=== PATIENT | female | born 1980 | race Caucasian/White ===

== ENCOUNTER 2021-12-09 12:39 | Inpatient (IN) ==
[2021-12-09 14:41] LABS: Basophils % 0.5 % (0.0-0.8); Eosinophils # 0.1 10*3/uL (0.0-0.87); Eosinophils % 2.6 % (0.00-10.9); Hematocrit 26.8 VOL% (35.7-47.0); Hemoglobin 8.6 GM/DL (12.0-16.0); Immature Granulocytes % 0.5 %; Immature Granulocytes Absolute 0.02 #; Lymphocytes % 26.3 % (21.3-54.2); Mean Corpuscular HGB Conc 32.1 GM/DL (32-36); Mean Platelet Volume 10.9 FL (9.6-12.0); Monocytes % 4.6 % (1.7-12.7); Neutrophils % 65.5 % (38.7-73.9); Platelet Count 95 T/CUMM (130-400); Red Blood Count 3.19 MC/CUMM (3.8-5.5); Red Cell Distribution Width 15.4 % (9.3-17.3); White Blood Count 3.9 T/CUMM (4-12)
[2021-12-09 14:49] LABS: Bilirubin,Urine Negative (Negative); Blood, Urine Moderate mg/dL (Negative); Glucose,Urine (UA) Negative (Negative); Ketones,Urine Negative (Negative); Mucus,Urine Occasional /LPF (Occasional); Nitrite,Urine Negative (Negative); Protein,Urine Negative; RBC,Urine 4 /HPF (0-4); Squamous Epithelial Cell,Urine Occasional /HPF (0-10); Urine Appearance Slightly Hazy (Clear); Urine Color Yellow (Yellow); Urine Specific Gravity 1.024 (1.001-1.035); Urine Urobilinogen < 2.0 EU/DL (<2.0)
[2021-12-09 14:59] LABS: Albumin 2.7 G/DL (3.4-5.0); Bilirubin,Total 0.7 MG/DL (0.20-1.00); Calcium 8.3 MG/DL (8.5-10.1); Potassium 3.6 MMOL/L (3.5-5.1); Total Protein 7.8 G/DL (6.4-8.2)
[2021-12-09 15:07] LABS: Eosinophils 1 % (0-10); Lymphocytes 16 % (20-55); Segmented Neutrophils 82 % (50-85); Total Cells Counted 100
[2021-12-09 15:08] LABS: Anisocytosis Slight; Microcytosis Slight; Platelet Estimate Decreased; Polychromasia Few
[2021-12-09] MEDS ORDERED: SODIUM CHLORIDE 0.9% 2,000 ML IV STA (15:39)
[2021-12-09] MEDS ORDERED: cefTRIAXone 1,000 MG in SODIUM CHLORIDE 0.9% 100 ML IV STA (15:40)
[2021-12-09 15:53] LABS: INR 1.2; PT Patient Result 12.7 SECS (10.5-12.0)
[2021-12-09] MEDS ORDERED: PANTOPRAZOLE INJ 80 MG in SODIUM CHLORIDE 0.9% 100 ML IV ONE (18:49)
[2021-12-09] MEDS ORDERED: ALBUTEROL/IPRATROPIUM 3 ML NEB RESP TX PRN (18:50)
[2021-12-09] MEDS ORDERED: NICOTINE 21 MG/24 HR PATCH TRANSDERM PRN (18:50)
[2021-12-09] MEDS ORDERED: ONDANSETRON 4 MG/2 ML VIAL IV PRN (18:50)
[2021-12-09] MEDS ORDERED: guaiFENesin/DM ER 600-30 MG TABLET PO PRN (18:50)
[2021-12-09] MEDS ORDERED: DOCUSATE SODIUM 100 MG CAPSULE PO PRN (18:50)
[2021-12-09] MEDS ORDERED: hydrALAZINE 20 MG/1 ML VIAL IV PRN (18:50)
[2021-12-09] MEDS ORDERED: ACETAMINOPHEN 325 MG TABLET PO PRN (18:50)
[2021-12-09] MEDS ORDERED: PROMETHAZINE 25 MG/1 ML VIAL IM PRN (18:50)
[2021-12-09] MEDS ORDERED: diphenhydrAMINE CAP 25 MG CAPSULE PO PRN (18:50)
[2021-12-09] MEDS ORDERED: DEXTROSE 10% 250 ML BAG IV PRN (18:50)
[2021-12-09] MEDS ORDERED: ZALEPLON 5 MG CAPSULE PO PRN (18:50)
[2021-12-09] MEDS ORDERED: GLUCAGON 1 MG VIAL IM PRN (18:50)
[2021-12-09] MEDS ORDERED: PROPRANOLOL 20 MG TABLET PO STA (18:53)
[2021-12-09] MEDS ORDERED: PANTOPRAZOLE 40 MG VIAL IV ONE (19:12)
[2021-12-09 19:47] LABS: Hepatitis B Core IgM Quant 0.31 Index; Hepatitis B Surface Ag Quant 0.11 Index; Hepatitis B Surface Ag Result Non-Reactive (NonReactive); Hepatitis C Virus Ab Quant 0.13 Index; Hepatitis C Virus Ab Result Non-Reactive (NonReactive)
[2021-12-09] MEDS: AZITHROMYCIN INJ 500 MG in SODIUM CHLORIDE 0.9% 250 ML IV SCH (21:03)
[2021-12-09] MEDS: DEXT 5% NACL 0.9% KCL 20 MEQ 20 MEQ/1,000 ML BAG IV SCH (22:50)
[2021-12-09] MEDS: PANTOPRAZOLE INJ 200 MG in SODIUM CHLORIDE 0.9% 250 ML IV SCH (22:55)
[2021-12-10 06:10] LABS: Basophils % 0.7 % (0.0-0.8); Eosinophils # 0.1 10*3/uL (0.0-0.87); Eosinophils % 3.7 % (0.00-10.9); Hematocrit 21.2 VOL% (35.7-47.0); Immature Granulocytes % 0.7 %; Immature Granulocytes Absolute 0.02 #; Lymphocytes # 0.9 10*3/uL (1.4-4.0); Lymphocytes % 33.8 % (21.3-54.2); Mean Corpuscular HGB Conc 32.1 GM/DL (32-36); Mean Corpuscular Volume 84.5 FL (87-102); Monocytes % 8.2 % (1.7-12.7); Neutrophils % 52.9 % (38.7-73.9); Red Cell Distribution Width 15.7 % (9.3-17.3)
[2021-12-10 06:26] LABS: Hemoglobin 6.8 GM/DL (12.0-16.0); Platelet Count 64 T/CUMM (130-400); Red Blood Count 2.51 MC/CUMM (3.8-5.5); White Blood Count 2.7 T/CUMM (4-12)
[2021-12-10 06:42] LABS: Hypochromia 1+; Microcytosis 1+; Platelet Estimate Decreased
[2021-12-10 06:44] LABS: Osmolality,Calculated 280.5 MOS/KG (273-304); Potassium 3.6 MMOL/L (3.5-5.1)
[2021-12-10] MEDS ORDERED: SODIUM CHLORIDE 0.9% 1,000 ML IV PRN (08:03)
[2021-12-10] MEDS ORDERED: OCTREOTIDE 100 MCG/ML SYRINGE IV ONE (12:44)
[2021-12-10 19:02] LABS: Hematocrit 27.1 VOL% (35.7-47.0); Hemoglobin 8.7 GM/DL (12.0-16.0)
[2021-12-10] MEDS: cefTRIAXone 1,000 MG in SODIUM CHLORIDE 0.9% 100 ML IV SCH (20:00)
[2021-12-10] MEDS: AZITHROMYCIN INJ 500 MG in SODIUM CHLORIDE 0.9% 250 ML IV SCH (20:01)
[2021-12-10] MEDS: DEXT 5% NACL 0.9% KCL 20 MEQ 20 MEQ/1,000 ML BAG IV SCH ×2 (20:15→20:18)
[2021-12-10] MEDS: PANTOPRAZOLE INJ 200 MG in SODIUM CHLORIDE 0.9% 250 ML IV SCH (20:15)
[2021-12-10] MEDS: OCTREOTIDE 500 MCG in SODIUM CHLORIDE 0.9% 100 ML IV SCH (20:19)
[2021-12-11 00:42] LABS: Hematocrit 24.4 VOL% (35.7-47.0); Hemoglobin 7.9 GM/DL (12.0-16.0)
[2021-12-11] MEDS: OCTREOTIDE 500 MCG in SODIUM CHLORIDE 0.9% 100 ML IV SCH ×2 (02:06→13:48)
[2021-12-11] MEDS ORDERED: LACTATED RINGERS 1,000 ML IV SCH (06:30)
[2021-12-11 06:57] LABS: Basophils % 0.6 % (0.0-0.8); Eosinophils # 0.1 10*3/uL (0.0-0.87); Eosinophils % 5.5 % (0.00-10.9); Hematocrit 26.2 VOL% (35.7-47.0); Hemoglobin 8.4 GM/DL (12.0-16.0); Immature Granulocytes % 0.6 %; Immature Granulocytes Absolute 0.01 #; Lymphocytes # 0.5 10*3/uL (1.4-4.0); Lymphocytes % 29.8 % (21.3-54.2); Mean Corpuscular HGB Conc 32.1 GM/DL (32-36); Mean Corpuscular Volume 85.6 FL (87-102); Mean Platelet Volume 11.3 FL (9.6-12.0); Monocytes % 8.3 % (1.7-12.7); Neutrophils % 55.2 % (38.7-73.9)
[2021-12-11 06:58] LABS: Platelet Count 64 T/CUMM (130-400); Red Blood Count 3.06 MC/CUMM (3.8-5.5); White Blood Count 1.8 T/CUMM (4-12)
[2021-12-11 07:02] LABS: INR 1.3; PT Patient Result 13.8 SECS (10.5-12.0)
[2021-12-11 07:16] LABS: Hypochromia 1+; Microcytosis 1+; Platelet Estimate Decreased
[2021-12-11 07:33] LABS: Albumin 2.1 G/DL (3.4-5.0); Bilirubin,Total 0.7 MG/DL (0.20-1.00); Calcium 8.3 MG/DL (8.5-10.1); Osmolality,Calculated 283.1 MOS/KG (273-304); Potassium 3.6 MMOL/L (3.5-5.1); Total Protein 6.5 G/DL (6.4-8.2)
[2021-12-11 11:54] LABS: Hemoglobin 8.4 GM/DL (12.0-16.0)
[2021-12-11] MEDS ORDERED: SIMETHICONE DROPS 40 MG/0.6 ML 30 ML BOTTLE PO PRN (16:39)
[2021-12-11 18:10] LABS: Hematocrit 27.5 VOL% (35.7-47.0); Hemoglobin 8.8 GM/DL (12.0-16.0)
[2021-12-11] MEDS: AZITHROMYCIN INJ 500 MG in SODIUM CHLORIDE 0.9% 250 ML IV SCH (20:15)
[2021-12-11] MEDS: DEXT 5% NACL 0.9% KCL 20 MEQ 20 MEQ/1,000 ML BAG IV SCH (20:15)
[2021-12-11] MEDS: cefTRIAXone 1,000 MG in SODIUM CHLORIDE 0.9% 100 ML IV SCH (20:15)
[2021-12-11] MEDS: PANTOPRAZOLE INJ 200 MG in SODIUM CHLORIDE 0.9% 250 ML IV SCH (20:15)
[2021-12-12 01:44] LABS: Hematocrit 25.8 VOL% (35.7-47.0); Hemoglobin 8.2 GM/DL (12.0-16.0)
[2021-12-12 01:53] LABS: Calcium 8.2 MG/DL (8.5-10.1); Osmolality,Calculated 277.4 MOS/KG (273-304); Potassium 3.8 MMOL/L (3.5-5.1)
[2021-12-12 06:03] LABS: Hematocrit 26.6 VOL% (35.7-47.0); Hemoglobin 8.3 GM/DL (12.0-16.0)
[2021-12-12 12:21] LABS: Hematocrit 27.4 VOL% (35.7-47.0); Hemoglobin 8.9 GM/DL (12.0-16.0)
[2021-12-12 12:32] LABS: % Iron Saturation 11.4 % (18-50); Ferritin 39.6 ng/mL (8-252)
[2021-12-12 16:26] VITALS: BP 149/78
[2021-12-14 13:41] LABS: Smooth Muscle Antibody Negative (Negative)
[2021-12-15 14:25] LABS: Antinuclear Ab, S 1.1 U
[2021-12-18 10:28] LABS: Anti-Nuclear Antibody Pattern Speckled
== END 2021-12-12 16:20 | disposition home or self-care (01) | DRG 432 ==
LOC: N.ED 12:39 → N.3E 18:50 → SUATTDRO 18:50 → N.3E 22:46
PROVIDERS: ADMIT Internal Medicine; ATTEND Internal Medicine
PROC: EGDWEBL (ICD-10-PCS; 2021-12-11 11:35)